=== PATIENT | female | born 1950 | race Caucasian/White ===

== ENCOUNTER 2021-09-14 15:24 | Inpatient (IN) ==
[2021-09-14 18:32] LABS: ABS Basophils 0.1 10^3/ul (0-0.2); ABS Eosinophils 0.1 10^3/ul (0-0.6); ABS Lymphocytes 1.6 10^3/ul (1.0-4.8); ABS Monocytes 0.6 10^3/ul (0-0.8); ABS Neutrophils 6.9 10^3/ul (1.5-7.7); Eosinophil % 1.3 %; Hematocrit 45 % (35-47); Lymphocyte % 17.5 %; Mean Corpuscular HGB Conc 33 g/dL (31-36); Mean Corpuscular Hemoglobin 29 pg (27-31); Mean Corpuscular Volume 88 fL (80-97); Mean Platelet Volume 7.1 fL (7.4-10.4); Platelet Count 355 10^3/uL (150-450); Red Blood Count 5.15 10^6 /uL (3.70-4.87); Red Cell Distribution Width 15 % (10-15); White Blood Count 9.3 10^3/uL (3.5-10.8)
[2021-09-14 18:55] LABS: Urine Appearance Cloudy; Urine Bilirubin Negative (Negative); Urine Blood 1+ (Negative); Urine Color Yellow; Urine Glucose Negative (Negative); Urine Ketones Negative (Negative); Urine Nitrite Negative (Negative); Urine Protein Negative (Negative); Urine Specific Gravity 1.005 (1.002-1.030); Urine Urobilinogen Negative (Negative)
[2021-09-14 18:59] LABS: Urine Bacteria Absent (Absent); Urine Red Blood Cell Trace(0-2/hpf) (Absent); Urine Squamous Epithelial Cell Present (Absent); Urine White Blood Cell 3+(>20/hpf) (Absent)
[2021-09-14 19:06] LABS: Albumin 4.5 g/dL (3.2-5.2); Anion Gap 9 mmol/L (2-11); Blood Urea Nitrogen 11 mg/dL (6-24); CO2 Carbon Dioxide 25 mmol/L (22-32); Calcium 9.5 mg/dL (8.6-10.3); Chloride 102 mmol/L (101-111); Glucose 92 mg/dL (70-100); Potassium 4.3 mmol/L (3.5-5.0); Sodium 136 mmol/L (135-145); Total Protein 7.1 g/dL (6.4-8.9); eGFR CKD-EPI 96.3 (>60)
[2021-09-14 19:07] LABS: ALT 14 U/L (7-52); AST 7 U/L (13-39); Acetaminophen < 15 mcg/mL; Albumin/Globulin Ratio 1.7 (1-3); Alcohol, S < 13 mg/dL (<13); Alkaline Phosphatase 68 U/L (35-149); Globulin 2.6 g/dL (2-4); Salicylate < 2.50 mg/dL (<30)
[2021-09-14 19:11] LABS: TSH Ultra Thyroid Stim Horm 1.93 mcIU/mL (0.34-5.60)
[2021-09-14 19:14] LABS: Urine Benzodiazepine Screen None Detected (None Detect); Urine Cannabinoids Screen None Detected (None Detect); Urine Opiates Screen None Detected (None Detect)
[2021-09-14] MEDS ORDERED: Al Hydrox/Mg Hydrox/Simet LIQ 30 ML UDC PO PRN (22:35)
[2021-09-15] MEDS: Multivitamins/Minerals TAB PO SCH (08:56)
[2021-09-15] MEDS ORDERED: Anastrozole 1 mg TAB (NF) PO SCH (09:00)
[2021-09-15] MEDS: CMCS: Anastrozole 1 mg TAB (NF) PO SCH (11:30)
[2021-09-16 08:29] LABS: HDL Cholesterol 47.6 mg/dL
[2021-09-16] MEDS: CMCS: Anastrozole 1 mg TAB (NF) PO SCH (08:40)
[2021-09-16] MEDS: Multivitamins/Minerals TAB PO SCH (08:40)
[2021-09-17] MEDS: Multivitamins/Minerals TAB PO SCH (09:37)
[2021-09-17] MEDS: CMCS: Anastrozole 1 mg TAB (NF) PO SCH (09:37)
[2021-09-18] MEDS: CMCS: Anastrozole 1 mg TAB (NF) PO SCH (09:13)
[2021-09-18] MEDS: Multivitamins/Minerals TAB PO SCH (09:14)
[2021-09-19] MEDS: Multivitamins/Minerals TAB PO SCH (09:15)
[2021-09-19] MEDS: CMCS: Anastrozole 1 mg TAB (NF) PO SCH (09:16)
[2021-09-19] MEDS: Magnesium Hydroxide LIQ 30 ML UDC PO PRN (20:38)
[2021-09-20] MEDS: CMCS: Anastrozole 1 mg TAB (NF) PO SCH (07:34)
[2021-09-20] MEDS: Multivitamins/Minerals TAB PO SCH (07:34)
[2021-09-21] MEDS: Multivitamins/Minerals TAB PO SCH (07:36)
[2021-09-21] MEDS: CMCS: Anastrozole 1 mg TAB (NF) PO SCH (07:36)
[2021-09-22] MEDS: Magnesium Hydroxide LIQ 30 ML UDC PO PRN (08:24)
[2021-09-22] MEDS: Multivitamins/Minerals TAB PO SCH (08:24)
[2021-09-22] MEDS: CMCS: Anastrozole 1 mg TAB (NF) PO SCH (08:25)
[2021-09-23] MEDS: Multivitamins/Minerals TAB PO SCH (08:35)
[2021-09-23] MEDS: CMCS: Anastrozole 1 mg TAB (NF) PO SCH (08:36)
[2021-09-23] MEDS: Magnesium Hydroxide LIQ 30 ML UDC PO PRN (15:06)
[2021-09-24 08:15] VITALS: BP 145/79
[2021-09-24] MEDS: CMCS: Anastrozole 1 mg TAB (NF) PO SCH (08:34)
[2021-09-24] MEDS: Multivitamins/Minerals TAB PO SCH (08:34)
== END 2021-09-24 15:00 | disposition home or self-care (01) | DRG 885 ==
LOC: ED 15:24 → EDHOLD 21:46 → BSU 23:01
PROVIDERS: ADMIT Psychiatry & Neurology Psychiatry; ATTEND Student in an Organized Health Care Education/Training Program